=== PATIENT | female | born 1980 | race Caucasian/White ===

== ENCOUNTER 2019-01-23 02:46 | Emergency (ER) | payer MEDICAID, OTHER ==
--- NOTE | 2019-01-23 03:19 | ED Physician Chart ---
ED Chief Complaint/HPI - Patient Information Date Seen:: 01/23/19 Time Seen:: 03:10 Chief Complaint:: Vaginal bleeding History of Present Illness:: female with LNMP in 07/2018. Pt had pelvic sonogram 01/19/2019 that confirmed 26-week gestation per her [employer] physician Dr. Luong. Pt came in by private auto because of vaginal spotting since earlier this morning. No pelvic pain or cramp. No fever or lightheadedness. Allergies:: Allergies Allergy/AdvReac Type Severity Reaction Status Date / Time No Known Allergies Allergy Verified 01/23/19 03:02 Vitals:: Vital Signs - 8 hr 01/23/19 02:50 Temp 97.4 F HR 86 RR 18 BP 123/78 O2 Sat % 97 Historian:: Patient Family MD/PCP:: Dr. Chanel LMP:: about 7 months ago. Review:: Nurse's Note Reviewed ED Review of Systems - Review of Systems General/Constitutional: No fever, No chills, No weakness, No edema, No loss of appetite Skin: No skin lesions, No rash, No bruising Head: No headache, No light-headedness Eyes: No loss of vision, No pain, No diplopia ENT: No earache, No nasal drainage, No sore throat Neck: No neck pain, No swelling, No stiffness Cardio Vascular: No chest pain, No palpitations Pulmonary: No SOB, No cough, No wheezing GI: No nausea, No vomiting, No pain G/U: No dysuria, No frequency, No hematuria Artist'S Representative: No vaginal discharge, Abnormal vaginal bleeding, No contraction Musculoskeletal: No bone or joint pain, No back pain Endocrine: No polyuria, No polydipsia Psychiatric: No prior psych history, No depression Hematopoietic: No bruising, No lymphadenopathy Allergic/Immuno: No urticaria, No angioedema Neurological: No syncope, No focal symptoms, No weakness, No paresthesia, No headache, No dizziness, No confusion ED Past Medical History - Past Medical History Past Medical History: No significant medical hx Family History: Heart disease (in father), Diabetes Melitus (PGM), HTN (in mother) Social History: Non Smoker, No Alcohol, No Drug Use, Single, Other (lives with her friend.) Employment:: assistant manager bilingual. Surgical History: ( in '13) Psychiatricy History: None Medication: Reviewed ED Physical Exam - Physical Examination General/Constitutional: Awake, Well-developed, well-nourished ( female ), Alert , No distress, Non-toxic appearing Head: Atraumatic Eyes: Lids, conjuctiva normal, PERRL, EOMI Skin: Nl inspection, No rash, No ecchymosis, Well hydrated, No lymphadenopathy ENMT: External ears, nose nl, Nasal exam nl, Oropharynx nl Neck: Nontender, Full ROM w/o pain, No nuchal rigidity, No mass Respiratory: Nl effort/Exclusion, Clear to Auscultation, No Wheeze/Rhonchi/Rales Cardio Vascular: RRR, No murmur, gallop, rubs GI: No tenderness/rebounding/guarding, No organomegaly, Normal BS's Other GI comments:: Abdomen is soft, enlarged c/w gestation. Other comments:: Pelvic exam: deferred per pt's request as her vaginal bleeding has subsided. Pt states that she will follow with her [employer] physician Dr. Chanel for further exam and evaluation. Extremities: No tenderness or effusion, No edema Neuro/Psych: Alert/oriented (oriented x 3), Judgement/insight normal, Mood normal, Normal gait, No focal deficits ED Labs/Radiology/EKG Results - Lab Results Results: Laboratory Results - last 24 hr 01/23/19 01/23/19 01/23/19 03:40 03:40 03:40 WBC 12.5 H RBC 3.31 L Hgb 11.0 L Hct 32.5 L MCV 98.0 MCH 33.0 H MCHC Differential 33.7 RDW 13.4 Plt Count 292 MPV 6.9 Neutrophils % 67.9 Lymphocytes % 24.4 Monocytes % 5.7 Eosinophils % 1.2 Basophils % 0.8 PT 9.5 INR 0.91 PTT (Actin FS) 26.8 Sodium 136 Potassium 3.4 L Chloride 105 Carbon Dioxide 21.3 Anion Gap 13.1 BUN 8 Creatinine 0.5 L Est GFR ( Amer) > 60.0 Est GFR (Non-Af Amer) > 60.0 BUN/Creatinine Ratio 16.0 Glucose 87 Calcium 8.8 Total Bilirubin 0.3 AST 10 L ALT 8 Alkaline Phosphatase 75 Total Protein 6.4 Albumin 3.4 L Globulin 3.0 Albumin/Globulin Ratio 1.1 Blood Type Antibody Screen 01/23/19 03:40 WBC RBC Hgb Hct MCV MCH MCHC Differential RDW Plt Count MPV Neutrophils % Lymphocytes % Monocytes % Eosinophils % Basophils % PT INR PTT (Actin FS) Sodium Potassium Chloride Carbon Dioxide Anion Gap BUN Creatinine Est GFR ( Amer) Est GFR (Non-Af Amer) BUN/Creatinine Ratio Glucose Calcium Total Bilirubin AST ALT Alkaline Phosphatase Total Protein Albumin Globulin Albumin/Globulin Ratio Blood Type O POSITIVE Antibody Screen NEGATIVE - Radiology Results Results: Pelvic sonogram preliminary report: Normal exam with BPD 27w 1d. FHT 144. Single IUP with cephalic presentation. ED Septic Shock - . Is Septic Shock (SBP<90, OR Lactate>4 mmol\L) present?: No - <6hrs of presentation: Vital Signs: Vital Signs - 8 hr 01/23/19 02:50 Temp 97.4 F HR 86 RR 18 BP 123/78 O2 Sat % 97 ED Reassessment (Disposition) - Reassessment Reassessment:: [id number] Pt remains stable and comfortable. Her vaginal bleeding has subsided. Lab and sonographic findings have been reviewed with pt. Pt requests to go home now and does not want to have further observation/management in hospital. She states that she will follow with her [employer] Dr. Chanel later today for further evaluation and management. Aftercare instructions have been given. Reassessment Condition:: Improved - Diagnosis Diagnosis:: Threatened . Mild hypokalemia. Mild anemia. - Aftercare/Follow up Instructions Aftercare/Follow-Up Instructions:: Refer to Discharge Instructions Notes:: Best rest for today. Increase oral intake of potassium rich foodstuffs such as banana, etc. No sexual intercourse until further physician direction. F/U with [employer] physician Dr. Chanel in one day for recheck with repeat lab studies: CBC, BMP. Return to ER immediately if condition worsens or if any further questions/problems. Copies of lab results, etc. have been given to pt to take to her [employer] physician Dr. Chanel for further evaluation/follow-up. Medication Prescribed:: None - Patient Disposition Discharge/Transfer:: Home Time:: 06:00 Condition at Disposition:: Stable, Improved
[2019-01-23 03:51] LABS: % BASOPHILS 0.8 % (0.0-2.0); % EOSINOPHILS 1.2 % (0.0-5.0); % LYMPHOCYTES 24.4 % (20.0-50.0); % MONOCYTES 5.7 % (2.0-10.0); % NEUTROPHILS 67.9 % (40.0-80.0); BASOPHILE ABSOLUTE 0.1 Th/cumm (0-0.2); EOSINOPHILE ABSOLUTE 0.2 Th/cmm (0.1-0.4); HEMATOCRIT 32.5 % (41.0-60); MEAN CORPUSCULAR HGB CONC 33.7 pg (28.0-36.0); MEAN PLATELET VOLUME 6.9 fl; MONOCYTE ABSOLUTE 0.7 Th/cmm (0.3-1.0); NEUTROPHILE ABSOLUTE 8.5 Th/cmm (1.8-8.0); PLATELET COUNT 292 Th/cmm (150-400); RED BLOOD COUNT 3.31 Mil/cmm (3.80-5.10); RED CELL DISTRIBUTION WIDTH 13.4 % (11.5-20.0); WHITE BLOOD COUNT 12.5 Th/cmm (4.8-10.8)
[2019-01-23 04:08] LABS: ALB/GLOB RATIO 1.1 (1.0-1.8); ALBUMIN 3.4 gm/dL (3.7-5.3); ALKALINE PHOSPHATASE 75 U/L (34-104); ANION GAP 13.1 (7.0-16.0); BILIRUBIN,TOTAL 0.3 mg/dL (0.3-1.0); BUN - UREA NITROGEN 8 mg/dL (7-25); CALCIUM SERUM 8.8 mg/dL (8.6-10.3); CARBON DIOXIDE 21.3 mEq/L (21.0-31.0); CHLORIDE 105 mEq/L (98-107); CREATININE - SERUM 0.5 mg/dL (0.6-1.2); GFR AFRICAN-AMERICAN > 60.0 ml/min (>90); GFR NON AFRICAN-AMERICAN > 60.0 ml/min; GLUCOSE 87 mg/dL (70-105); POTASSIUM SERUM 3.4 mEq/L (3.5-5.1); SGOT 10 U/L (13-39); SGPT/ALT 8 U/L (7-52); SODIUM SERUM 136 mEq/L (136-145); TOTAL PROTEIN,SERUM 6.4 gm/dL (6.0-8.3)
[2019-01-23 04:11] LABS: INR 0.91 (0.5-1.4); PROTHROMBIN TIME (TEST) 9.5 SECONDS (9.5-11.5)
[2019-01-23] MEDS ORDERED: Potassium Chloride 20 mEq ER Tab PO ONE ×2 (05:24→05:34)
--- NOTE | 2019-01-23 11:09 | Diagnostic Imaging Report ---
Exam: Pelvic ultrasound HISTORY: Vaginal bleeding Findings: Real-time ultrasound examination of pelvis performed multiple planes utilizing transvaginal technique. The study demonstrates single live intrauterine gestation with fetus in cephalic presentation. Cardiac activity 1 44 bpm appreciated. The amount of mural fluid is normal. The cervix is closed. Placenta is anterior fundal grade 2. Serial measurements of BPD 6.7 cm HC 3.8 cm AC 22.7 cm FL 4.8 cm The findings roughly correspond to estimated gestational age 26 weeks 2 days. The visualized the anatomy within normal limits. Detailed examination of the anatomy is recommended if clinically indicated. IMPRESSION: Single live intrauterine gestation fetus in cephalic presentation estimated gestational age is 26 weeks 2 days. .SHAWN 04/29/2019
== END 2019-01-23 06:06 | disposition home or self-care (01) ==
LOC: ER 02:46
DX: O20.0 Threatened abortion (principal); O99.282 Endocrine, nutritional and metabolic diseases complicating pregnancy, second trimester; E87.6 Hypokalemia; O99.012 Anemia complicating pregnancy, second trimester; Z3A.26 26 weeks gestation of pregnancy
CPT/HCPCS: 36415-UA; 76811-TC; 80053-TC; 85025-TC; 85610-TC; 86850-TC; 86900-TC; 86901-TC